=== PATIENT | female | born 1965 | race Caucasian/White ===

== ENCOUNTER 2018-04-15 20:08 | Emergency (ER) | payer OTHER, BC ==
[~2018-04-15] VITALS: Ht 182.9 cm; Wt 96.2 kg
[2018-04-15 20:22] VITALS: BP 132/88
[2018-04-15] MEDS ORDERED: IBUP800T19 PO (21:30)
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
--- NOTE | 2018-04-16 07:35 | RAD ---
Right hand, 3 views, 04/15/2018: HISTORY: Hand injury No fracture or dislocation is identified. The soft tissues are unremarkable. IMPRESSION: No acute right hand abnormality is detected. Electronically signed by: Daniel Presley MD (04/16/2018 7:32 AM) [facility]
== END 2018-04-15 21:40 | disposition home or self-care (01) ==
LOC: ER 20:08
DX: S60.221A Contusion of right hand, initial encounter (principal); S50.812A Abrasion of left forearm, initial encounter; Z88.5 Allergy status to narcotic agent; Y08.89XA Assault by other specified means, initial encounter; Y93.89 Activity, other specified; Y99.8 Other external cause status; Y92.89 Other specified places as the place of occurrence of the external cause
CPT/HCPCS: 29515; 73130; 99284

== ENCOUNTER → 2020-06-08 | Outpatient (CLI) | payer BC ==
[~2020-06-08] MED LIST: IBUP800T19 PO
--- NOTE | 2020-06-10 14:02 | RAD ---
EXAM: BILATERAL DIGITAL 3D SCREENING MAMMOGRAPHY. HISTORY: Routine mammographic screening. TECHNIQUE: Bilateral digital 3D and tomographic images were obtained in CC and MLO projections. Computer-aided detection was applied. COMPARISON: 10/02/2013. COMPOSITION: B. There are scattered areas of fibroglandular density. FINDINGS: There are no suspicious masses, microcalcifications or architectural distortion. The parenchymal pattern is stable. Small nodule superolaterally are consistent with intraparenchymal lymph nodes. Scattered and coarse calcifications are benign. BI-RADS CATEGORY 2: Benign. RECOMMENDATION: 1. Routine screening mammography in one year. If mammography demonstrates dense breast tissue (heterogenously dense or extremely dense, category C or D), which could hide abnormalities, and if other risk factors for breast cancer have been identified, supplemental screening tests that may be suggested by the ordering physician may be of benefit. Dense breast tissue, in and of itself, is a relatively common condition. Therefore, this information is not provided to cause undue concern, but rather to raise awareness and to promote discussion with the referring physician regarding the presence of other risk factors, in addition to dense breast tissue. The results of this mammography examination is provided to the patient and referring physician. The patient should contact their referring physician if any questions or concerns exist regarding this report. PQRS compliance statement - Patient information was entered into a reminder system with a target due date for the next mammogram. "Our facility is accredited by the [employer]amm[employer]." Electronically signed by: Ember Ga MD (06/10/2020 1:59 PM) [id number]
== END ==
LOC: MAMMO 14:20
PROVIDERS: ATTEND Internal Medicine
DX: Z12.31 Encounter for screening mammogram for malignant neoplasm of breast (principal)
CPT/HCPCS: 77063; 77067